=== PATIENT | male | born 1950 | race Caucasian/White ===

== ENCOUNTER 2018-01-19 13:02 | Day surgery (SDC) | payer MEDICARE ==
[2018-01-17 14:35] LABS: MICROSCOPIC NOT IND
[2018-01-17 14:41] LABS: BASOPHILS # (AUTO) 0.01 x10^3/uL (0-0.1); BASOPHILS % (AUTO) 0 % (0-1); EOSINOPHILS # (AUTO) 0.03 x10^3/uL (0-0.4); EOSINOPHILS % (AUTO) 1 % (1-7); LYMPHOCYTES % (AUTO) 25 % (22-44); MD NO; MEAN CORPUSCULAR HGB CONC 33.2 g/dL (33.2-36.2); MEAN CORPUSCULAR VOLUME 90.5 fL (81-97); MEAN PLATELET VOLUME 7.8 fL (7.4-10.4); MONOCYTES # (AUTO) 0.45 x10^3/uL (0.2-0.8); MONOCYTES % (AUTO) 8 % (2-9); NEUTROPHILS # (AUTO) 3.92 x10^3/uL (1.8-6.8); NEUTROPHILS % (AUTO) 66 % (42-75); PLATELET COUNT 288 x10^3/uL (130-400); RED CELL DISTRIBUTION WIDTH 13.9 % (9.4-14.8)
[2018-01-17 14:51] LABS: ANION GAP 7 mmol/L (5-15); CALCIUM 8.2 mg/dL (8.5-10.1); CHLORIDE 106 mmol/L (98-107); CREATININE 1.27 mg/dL (0.7-1.3)
[2018-01-17 14:55] LABS: PSA SCREEN 4.38 ng/mL (0.00-4.00)
[~2018-01-19] VITALS: Ht 182.9 cm; Wt 79.6 kg
[~2018-01-19 13:02] MED LIST: LEVO137T3 PO; LORA-445 PO; SERAQUIL PO; TAMS-11 PO
[2018-01-19] MEDS ORDERED: LACTATED RINGERS 1,000 ML IV SCH (13:27)
[2018-01-19 13:53] VITALS: BP 137/83
[2018-01-19] MEDS ORDERED: HYDR-3237 PO (13:56)
[2018-01-19] MEDS ORDERED: PROPOFOL 10 MG/ML, 20ML ONE (15:48)
[2018-01-19] MEDS ORDERED: FENTANYL PF 100 MCG/2ML ONE ×2 (15:48→18:37)
[2018-01-19] MEDS ORDERED: SUCCINYLCHOLINE 20 MG/ML, 10ML ONE (15:48)
[2018-01-19] MEDS ORDERED: MIDAZOLAM 1 MG/ML, 2ML ONE (15:48)
[2018-01-19] MEDS ORDERED: ROCURONIUM 10MG/ML,5ML ONE (15:48)
[2018-01-19] MEDS ORDERED: EPHEDRINE 50 MG/ML, 1ML ONE (15:56)
[2018-01-19] MEDS ORDERED: ONDANSETRON 2MG/ML, 2ML ONE (15:56)
[2018-01-19] MEDS ORDERED: CEFAZOLIN 1,000 MG ONE (15:56)
[2018-01-19] MEDS ORDERED: LIDOCAINE-MPF 2% ,5ML ONE (15:56)
[2018-01-19] MEDS ORDERED: KETOROLAC 30 MG/1 ML ONE (15:56)
[2018-01-19] MEDS ORDERED: OXYcodone 5 MG/5 ML ORAL.SOL UDC ONE ×2 (18:38→18:58)
[2018-01-19] MEDS: OXYcodone 5 MG/5 ML ORAL.SOL UDC PO PRN ×2 (18:39→18:59)
[2018-01-19] MEDS: FENTANYL PF 100 MCG/2ML IV PRN ×3 (18:42→18:59)
[2018-01-19] MEDS ORDERED: MEPERIDINE/PF 50 MG/ML ONE (18:45)
[2018-01-19] MEDS ORDERED: METOCLOPRAMIDE 5 MG/ML, 2ML IV PRN (19:00)
[2018-01-19] MEDS ORDERED: HYDROmorphone 1 MG/ML, 1ML IV PRN (19:00)
[2018-01-19] MEDS ORDERED: LORazepam 2 MG/ML, 1ML IVPush PRN (19:00)
[2018-01-19] MEDS ORDERED: hydrALAzine 20 MG/ML, 1ML IV PRN (19:00)
[2018-01-19] MEDS ORDERED: ACETAMINOPHEN 325 MG TABLET PO PRN (19:00)
[2018-01-19] MEDS ORDERED: MEPERIDINE/PF 25MG/0.5ML IVPush PRN (19:00)
[2018-01-19] MEDS ORDERED: ONDANSETRON 2MG/ML, 2ML IV PRN (19:00)
[2018-01-19] MEDS ORDERED: LABETALOL 5MG/ML, 20ML IV PRN (19:00)
[2018-01-19] MEDS ORDERED: MORPHINE SULFATE 4 MG/ML, 1ML ONE ×3 (19:05→19:58)
[2018-01-19] MEDS: MORPHINE SULFATE 4 MG/ML, 1ML IVPush PRN ×3 (19:06→20:01)
[2018-01-19] MEDS ORDERED: HYDROcodone/APAP 5/325 TABLET PO PRN (21:00)
[2018-01-19] MEDS ORDERED: ONDANSETRON ODT 4 MG PO PRN (21:00)
== END 2018-01-19 21:50 | disposition home or self-care (01) ==
LOC: OUT 13:02 → 4NOR 20:25 → OUT 21:50
PROVIDERS: ATTEND Urology
DX: N20.0 Calculus of kidney (principal); F41.9 Anxiety disorder, unspecified; M19.90 Unspecified osteoarthritis, unspecified site; Z87.442 Personal history of urinary calculi; Z87.891 Personal history of nicotine dependence; Z91.041 Radiographic dye allergy status; Z79.899 Other long term (current) drug therapy; Z98.890 Other specified postprocedural states
CPT/HCPCS: 36415; 50590; 52332; 80048; 81003; 85025; 87086; 93005; C1758; C1769; G0103; J0330; J0690; J1885; J2175; J2250; J2405; J2704; J3010; J3490; J7120; G0378